=== PATIENT | female | born 1935 | race Caucasian/White ===

== ENCOUNTER 2016-08-31 22:04 | Emergency (ER) | payer OTHER, BC ==
[~2016-08-31] VITALS: Ht 170.2 cm; Wt 70.9 kg
[2016-08-31 22:32] LABS: HEMATOCRIT 48.3 % (36.0-46.0); MCH 29.1 PG (29.0-34.0); MCHC 32.3 G/DL (30.0-36.0); MCV 89.9 FL (83-99); MEAN PLAT.VOLUME 11.5 uM^3 (9.5-12.4); PLATELET COUNT 263 K/uL (156-360); RBC DIS.WIDTH-SD 42.3 % (39-53); RED BLOOD COUNT 5.37 M/uL (3.80-5.20); WHITE BLOOD COUNT 20.8 K/uL (4.1-10.2)
[2016-08-31 22:48] LABS: CHLORIDE 103 mEq/L (99-109); POTASSIUM 4.2 mEq/L (3.7-5.4); SODIUM 141 mEq/L (136-147)
[2016-08-31 22:50] LABS: GLUCOSE 133 mg/dL (70-99)
[2016-08-31 22:51] LABS: ANION GAP 10 MEQ/L (2-14)
[2016-08-31 22:52] LABS: TOTAL BILIRUBIN 0.5 mg/dL (0.0-1.0)
[2016-08-31 22:53] LABS: ALKALINE PHOSPHATASE 121 IU/L (3-129)
[2016-08-31 22:54] LABS: GFR ESTIMATE (CALCULATED) > 59 mL/min/
[2016-08-31 22:55] LABS: UREA NITROGEN (BUN) 19 mg/dL (9-23)
[2016-08-31 23:02] LABS: TROP-I INTERPRETATION NEGATIVE; TROPONIN-I < 0.01 ng/mL (0.0-0.30)
[2016-09-01] MEDS ORDERED: ZOFRAN4 MG PO (01:39)
[2016-09-01 01:49] VITALS: BP 120/65
== END 2016-09-01 01:50 | disposition home or self-care (01) ==
LOC: EME 22:04
DX: R11.2 Nausea with vomiting, unspecified (principal); R19.7 Diarrhea, unspecified; E86.0 Dehydration; Z87.891 Personal history of nicotine dependence
CPT/HCPCS: 74176; 80053; 81003; 84484; 85027; 99281; 99284; J2405; J7030